=== PATIENT | male | born 1965 | race African-American/Black ===

== ENCOUNTER 2020-03-13 07:33 | Emergency (ER) | payer BC ==
[~2020-03-13] VITALS: Ht 177.8 cm; Wt 109.1 kg
[2020-03-13 07:37] VITALS: Ht 177.8 cm; Wt 109.1 kg
[2020-03-13 08:18] LABS: BASOPHILS 0.2 % (0-2); EOSINOPHILS 1.8 % (0-7); HEMATOCRIT 37.9 % (42.0-54.0); HEMOGLOBIN 12.7 g/dL (13.5-17.5); IMMATURE GRANULOCYTES 0.2 % (0-5); LYMPHOCYTES 32.2 % (15-50); MCH 30.4 pg (26.0-34.0); MCHC 33.5 g/dL (31.0-37.0); MCV 90.7 fL (80.0-100.0); MEAN PLATELET VOLUME 9.7 fL (7.4-10.4); MONOCYTES 7.7 % (2-11); NEUTROPHILS 57.9 % (40-80); PLATELET COUNT 424 10x3/uL (130-400); RBC 4.18 10x6/uL (4.20-6.10); RDW 12.2 % (11.5-14.5)
[2020-03-13 08:21] LABS: CALC OSMOLALITY 279 mosm/kg (275-300); CALCIUM 8.5 mg/dL (8.5-10.1); CARBON DIOXIDE 27.9 mmol/L (21.0-32.0); CHLORIDE - SERUM 106 mmol/L (98-107); GLUCOSE 127 mg/dL (74-106); POTASSIUM - SERUM 3.4 mmol/L (3.5-5.1); SODIUM 140 mmol/L (136-145); UREA NITROGEN 9 mg/dL (7-18); eGFR NON AFRICAN AMERICAN 83 mL/min (90-120)
[2020-03-13 08:32] LABS: INR 0.98 (0.85-1.17); PROTIME 12.9 SECONDS (11.6-15.0)
[2020-03-13 08:38] LABS: ALBUMIN 3.1 g/dL (3.4-5.0); ALKALINE PHOSPHATASE 71 U/L (30-120); ALT (SGPT) 24 U/L (10-68); BILIRUBIN - TOTAL 0.76 mg/dL (0.2-1.3); CKMB 1.3 U/L (0.0-3.6); CREATINE KINASE 582 UL (21-232)
[2020-03-13 08:41] LABS: TROPONIN-I < 0.017 ng/mL (0.000-0.060)
[2020-03-13] MEDS ORDERED: MAXALT MLT10 MG/TAB PO (12:09)
[2020-03-13] MEDS ORDERED: ZOFRAN ODT4 MG/UDTAB PO (12:10)
[2020-03-13 12:48] VITALS: BP 138/88
== END 2020-03-13 12:49 | disposition home or self-care (01) ==
LOC: D.ER 07:33
PROVIDERS: Family Medicine
DX: R51 Headache (principal); R07.89 Other chest pain; I10 Essential (primary) hypertension